=== PATIENT | female | born 1990 | race Caucasian/White ===

== ENCOUNTER 2018-01-24 08:15 | Inpatient (IN) ==
[2018-01-24] MEDS ORDERED: Lidocaine 1% 20 ML MDV INFILT PRN (09:10)
[2018-01-24] MEDS ORDERED: Famotidine 20 MG/2 ML VIAL IVP PRN (09:10)
[2018-01-24] MEDS ORDERED: Naloxone 0.4 MG/ML INJ IVP PRN (09:10)
[2018-01-24] MEDS ORDERED: Ondansetron 4 MG/2 ML VIAL IVP PRN (09:10)
[2018-01-24] MEDS ORDERED: Metoclopramide 10 MG/2 ML VIAL IVP PRN (09:10)
[2018-01-24] MEDS ORDERED: *HR* Nalbuphine 10 MG/ML AMPUL IVP PRN (09:10)
[2018-01-24] MEDS ORDERED: Ringers Solution, Lactated 1,000 ML IVC SCH (09:15)
[2018-01-24] MEDS ORDERED: Ringers Solution, Lactated 1,000 ML ONE (09:16)
--- NOTE | 2018-01-24 09:28 | Anesthesia Evaluation PreOp ---
Date of Encounter: 01/24/18 Time of Encounter: 09:16 - Past History Planned Operation: labor epidural Cardiac History: Denies any Significant Hx Pulmonary History: Denies Any Significant HX MINING MANAGER History: Denies Any Significant HX Other Medical History: Denies Any Significant HX Anesthesia History: No Prior Anesthetic Complications, Past Anesthesia (wisdom teeth, no problems. No FHAP.) Alcohol Use: occasionally Drug use: none Medications and Allergies 3 Allergy/AdvReac Type Severity Reaction Status Date / Time No Known Allergies Allergy Verified 09/07/15 16:10 - Meds/Allergy Pre-op Review Medications Reviewed: Yes Allergies Reviewed: Yes Beta Blockers on Current Med List: No Anesthesia Exam 130/80, 81, 98%, FHTs 150s. Height: 5'5" Weight: 102 kg NPO (# of Hours): >8 Pain Scale: 8 Pain Scale Used: Numeric (1 - 10) - HEENT Pupil (Motor): Pupils equal, EOMI Mallampati: II Teeth: Normal Oral Opening: Greater than 3 - MINING MANAGER LOC: Oriented MINING MANAGER Motor: Normal RUE, Normal LUE, Normal RLE, Normal LLE, Normal Face MINING MANAGER Sensory: Normal: RUE, LUE, RLE, LLE, Face - Cardiac Rhythm: Regular - Pulmonary Breath Sounds: bilateral Clear Respiratory Effort: Symmetrical Anesthesia Assess/Plan ASA Score: 2 Modified [place] Scale for Level of Consciousness: Cooperative, oriented, and tranquil Anesthetic Plan: Regional Monitoring Plan: Standard Monitors
[2018-01-24 09:29] LABS: Basophils % 0.3 %; Eosinophils % 0.1 %; Hematocrit 33.6 % (35.3-44.9); Hemoglobin 11.3 g/dL (11.5-15.4); Immature Granulocytes % 1.8 % (0-4); Immature Platelets 12.8 % (1.1-6.1); Lymphocytes # 1.9 K/mcL (0.6-4.6); Lymphocytes % 13.2 %; Mean Corpuscular HGB Conc 33.6 g/dL (31.6-35.5); Mean Corpuscular Hemoglobin 31.8 pg (28.0-33.3); Mean Corpuscular Volume 94.6 fL (83.0-100.0); Monocytes # 1.3 K/mcL (0.0-1.3); Monocytes % 9.5 %; Neutrophils # 10.5 K/mcL (1.6-8.9); Nucleated Red Blood Cells 0.2 /100 WBC (0); Platelet Count 146 K/mcL (140-400); Red Blood Count 3.55 M/mcL (3.82-4.97); Red Cell Distribution Width 14.4 % (11.5-14.5); Segmented Neutrophils % 75.1 %
[2018-01-24] MEDS ORDERED: Bupivacaine-MPF 0.25% 10 ML VIAL EP ONE (09:29)
[2018-01-24] MEDS ORDERED: *HR* FentaNYL (PF) 100 MCG/2 ML VIAL EP ONE (09:29)
[2018-01-24] MEDS ORDERED: Epidural Premix (fent/bupiv) 110 ML EP SCH (09:30)
[2018-01-24] MEDS ORDERED: Epidural Premix (fent/bupiv) 110 ML EP ONE (10:03)
--- NOTE | 2018-01-24 10:18 | OB/GYN History & Physical ---
Date of Encounter: 01/24/18 Time of Encounter: 10:13 Assessment and Plan (1) 40 weeks gestation of Current visit: Yes Status: Acute (2) Active labor at term Current visit: Yes Status: Acute Admit to L&D for observation of labor Expectant management GBS prophylaxis not indicated Pain management epidural - may have RISA Anticipate Dr. Araujo is present and aware of POC and agrees (3) Intrauterine Current visit: Yes Status: Acute History of Present Illness Chief complaint: contractions HPI: Ms. Rosen is a 27 year old female at 40 weeks + 2 days with an EDB of 01/22/18 dated by LMP. She presents with c/o contractions that started at 0300 this morning. She reports +FM and denies LOF, vaginal bleeding. Her course was uncomplicated. She was seen by our office and all records are available and were reviewed. Labs: O+ GBS- Hep B- T. Palladium - HIV - Rubella immune Varicella immune Past Med Surg Social Fam HX - Past Medical History Medical history: no medical history Psychiatric history: no psych history - Past Surgical History Surgical History: no surgical history - Social History Smoking Status: Never smoker Smokeless Tobacco Status: No Alcohol use: occasionally Drug use: none - Family History Mother Name: Sally Jones Hx Family Cardiac Disorders: No Hx Family Respiratory Disorders: No Hx Family Cancer: Yes (aunt breast cancer) Hx Family GI Disorders: No Hx Family Genitourinary Disorders: No Hx Family Endocrine Disorder: No Hx Family Musculoskeletal Disorders: No Hx Family Neurologic Disorders: No Hx Family HEENT Disorders: No Hx Family Autoimmune Disorders: Yes (RA) Hx Family Reproductive Disorders: No Hx Family Psychosocial Disorders: No Hx Family Medical Disorders: No Obstetrical History - Pregnancies : 1 Para: 0 Term: 0 : 0 Ab's: 0 Livin Medications and Allergies 3 Allergy/AdvReac Type Severity Reaction Status Date / Time No Known Allergies Allergy Verified 09/07/15 16:10 Review of System OB All systems PM: reviewed and no additional remarkable complaints except as stated Exam - Constitutional Constitutional: well developed, well nourished, average body habitus, moderate distress - HEENT HEENT: Normocephaly, Mucus Membranes Moist - Neck Neck exam: full ROM - Lungs Respiratory exam: CTAB - Cardiovascular Cardiovascular exam: RRR, +S1, +S2 - Breasts Breast: bilateral: normal - Abdomen Abdomen: Present: gravid, non tender - Extremities Extremities exam: normal inspection, pedal edema - Vulva Vulva: bilateral: normal - Vagina Vagina: Present: normal moisture - Cervix Dilation: 7 Effacement: 90 Station: -1 - Uterus Uterus exam: Present: normal size, normal contour - Anus/Rectum Anus/Rectum: Present: normal perianal skin Results Result Diagrams: 01/24/18 09:20 Abnormal lab results WBC 14.0 K/mcL (4.3-11.1) H 01/24/18 09:20 RBC 3.55 M/mcL (3.82-4.97) L 01/24/18 09:20 Hgb 11.3 g/dL (11.5-15.4) L 01/24/18 09:20 Hct 33.6 % (35.3-44.9) L 01/24/18 09:20 MPV 13.0 fL (9.4-12.4) H 01/24/18 09:20 Neutrophils # 10.5 K/mcL (1.6-8.9) H 01/24/18 09:20 Nucleated RBCs/100 WBC 0.2 /100 WBC (0) H 01/24/18 09:20 Immature Plt Fraction 12.8 % (1.1-6.1) H 01/24/18 09:20 All other labs normal. - VTE Reasons for not Prescribing Prophylaxis: Treatment not Indicated - Low risk for VTE
--- NOTE | 2018-01-24 10:29 | Anesthesia Procedures ---
Date of Encounter: 01/24/18 Time of Encounter: 10:26 Procedures: Anesthesia - Epidural/Spinal Patient ID/Chart reviewed: Yes Patient examined: Yes OB Eval: : 1 OB Eval: Hx Para: 0 OB Eval: Dilated at (cm): 7 OB Eval: Contractions: Non-stressed pattern Consent Obtained: Yes Supplemental Oxygen: None/Room Air Site Prep: Aseptic Technique Patient position: upright Local Anesthetic: Lidocaine 1% Amount of Local Anesthetic used: 3 Touhy Needle Gauge: 18 Touhy Needle Depth (cm): 6 Catheter Depth at Skin (cm): 12 Test Dose (1.5% Lido + Epi): Volume given (mls): 3 Test Dose Result: Negative Loading Dose: 0.25% Marcaine (mls): 7 Loading Dose: Fentanyl (mcg): 100 Loading Dose Administered: Thru Catheter Infusion Med: 0.125% Bupivacaine w/ 2 mcg/ml Fentanyl Catheter Secured in Place: Tegaderm Interspace Used: Other (L1-2) Loss of Resistance (KIM): Yes Blood: No CSF: No Paresthesia: No
--- NOTE | 2018-01-24 12:17 | OB Labor Progress Note ---
Date of Encounter: 01/24/18 Time of Encounter: 12:15 Labor Progress Note - Subjective Subjective: Pt comfortable with epidural. States she feels more pressure with contractions now. - Cervix Cervix: 9.5/100/0 - Heart Tones Heart Tones: Baseline 130 Moderate variability Accelerations present 15x15 Late decelerations previously repetitive and now resolved with fluid bolus and position changes FHR category II - Donaldson Donaldson: Contractions q 2-3 minutes and palpate strong - Interventions Interventions: Peanut ball and O2 and fluid bolus - Plan Plan: Continue expectant management Continue position changes Anticipate Dr. Araujo present and agrees with POC
[2018-01-24] MEDS ORDERED: Oxytocin 20 units/ LR 1000 mL 20 UNIT/1,000 ML BAG IVC ONE ×2 (13:00→15:24)
--- NOTE | 2018-01-24 14:13 | OB/GYN Procedure Note ---
Delivery - Delivery Date: 01/24/18 Provider: Inessa Mosqueda Intrapartum events: meconium Delivery induction: none Delivery monitor: external FHT, external uterine Anesthesia: epidural Estimated Blood Loss: 350 - (s) Infant A Infant Delivery Date: 01/24/18 Infant Delivery Time: 13:27 Presentation: vertex Position: OA Route of delivery: Gender: Male Viability: Viable Pounds: 8 Ounces: 14 Weight Gram: 4.035 kg at 1 minute: 9 at 5 mins: 10 Shoulder Dystocia: encountered Shoulder Dystocia Maneuvers: Jonas maneuver Shoulder dystocia time elapsed: 30 seconds Specimens collected: cord blood Placenta: spontaneous Cord: 3 umbilical vessels - Repair Episiotomy: none Laceration Description: Perineal - 1st Degree, Vaginal (bilateral) - Complications Delivery complications: meconium Delivery comments: This is a 27-year-old G1 now P1 who was admitted for active labor. She progressed spontaneously to the second stage of labor. She pushed for approximately 15 minutes. Under maternal effort she delivered a viable male infant, direct OA, over a first-degree laceration. A 30 second shoulder dystocia was encountered during which Jonas maneuver was used to release the anterior shoulder. A nuchal cord was not identified. Apgars were 9 at one minute and 10 at five minutes. The placenta delivered spontaneously, intact, with a three-vessel cord. Inspection revealed a first-degree perineal laceration and bilateral vaginal lacerations. There were also bilateral periurethral lacerations which were hemostatic. The perineal and vaginal lacerations were repaired with a 3-0 Vicryl in the usual fashion. The uterus was firm with no active bleeding. The repair was done under epidural anesthesia. EBL was 350 mL. Placenta was held and umbilical artery gases were not sent. Mom and baby skin to skin following delivery. Dr. Araujo was present for the entire delivery and repair. - Comments Comments: Procedure was reviewed and am in agreement .
[2018-01-24] MEDS ORDERED: Oxytocin 20 units/ LR 1000 mL 20 UNIT/1,000 ML BAG IVC SCH (17:59)
[2018-01-24] MEDS ORDERED: Acetaminophen 325 MG TABLET PO PRN (17:59)
[2018-01-24] MEDS: Ibuprofen 600 MG TABLET PO PRN (20:25)
[2018-01-25 05:21] LABS: Basophils % 0.2 %; Eosinophils % 0.1 %; Hematocrit 25.8 % (35.3-44.9); Immature Granulocytes % 1.7 % (0-4); Lymphocytes % 14.3 %; Mean Corpuscular HGB Conc 32.9 g/dL (31.6-35.5); Mean Corpuscular Hemoglobin 31.6 pg (28.0-33.3); Mean Corpuscular Volume 95.9 fL (83.0-100.0); Monocytes # 1.2 K/mcL (0.0-1.3); Monocytes % 8.3 %; Neutrophils # 10.4 K/mcL (1.6-8.9); Nucleated Red Blood Cells 0.2 /100 WBC (0); Platelet Count 111 K/mcL (140-400); Red Blood Count 2.69 M/mcL (3.82-4.97); Red Cell Distribution Width 14.4 % (11.5-14.5); Segmented Neutrophils % 75.4 %
[2018-01-25 05:33] LABS: Hemoglobin 8.5 g/dL (11.5-15.4)
[2018-01-25] MEDS: Ibuprofen 600 MG TABLET PO PRN (07:41)
[2018-01-25] MEDS ORDERED: Benzocaine/Menthol 56 GM AEROSOL SPRAY TP PRN (07:46)
[2018-01-25 08:10] VITALS: BP 119/74
[2018-01-25] MEDS ORDERED: Prenatal Vit/FA 1 EACH TABLET PO SCH (09:00)
--- NOTE | 2018-01-25 09:24 | Discharge Summary ---
Date of Encounter: 01/25/18 Time of Encounter: 09:22 - Discharge Diagnosis (1) Vaginal delivery Priority: Primary Status: Acute Comments: s/p vaginal delivery day 1 pain is well controlled lochia is light and without clots VSS tolerating regular diet voiding without difficulty discharge home today (2) Breast feeding status of mother Priority: Secondary Status: Acute - Discharge Medications Prescriptions: Ibuprofen [Motrin] 600 mg PO Q6HR PRN #30 tablet PRN Reason: Cramping Breast Pump [BREAST PUMP] 1 each .ROUTE AD 99 Days #1 each Docusate [Colace] 100 mg PO BID PRN #20 capsule PRN Reason: Constipation Ferrous Sulfate 325 mg PO DAILY #60 tablet Home Medications: Acetaminophen [Tylenol] 650 mg PO Q6HR PRN tablet 01/25/18 [Rx] Benzocaine/Menthol [place] [Dermoplast [place]] 1 appl TP QID PRN aerosol 01/25/18 [Rx] Breast Pump [BREAST PUMP] 1 each .ROUTE AD 99 Days #1 each 01/25/18 [Rx] Docusate [Colace] 100 mg PO BID PRN #20 capsule 01/25/18 [Rx] Ferrous Sulfate 325 mg PO DAILY #60 tablet 01/25/18 [Rx] Ibuprofen [Motrin] 600 mg PO Q6HR PRN #30 tablet 01/25/18 [Rx] Vit/FA 1 each PO DAILY tablet 01/25/18 [Rx] Allergies/Adverse Reactions: 3 Allergy/AdvReac Type Severity Reaction Status Date / Time No Known Allergies Allergy Verified 09/07/15 16:10 Data Procedures and tests throughout hospitalization: Laboratory Tests 01/24/18 01/25/18 09:20 04:37 WBC 14.0 H 13.9 H RBC 3.55 L 2.69 L Hgb 11.3 L 8.5 L D Hct 33.6 L 25.8 L MCV 94.6 95.9 MCH 31.8 31.6 MCHC 33.6 32.9 RDW 14.4 14.4 Plt Count 146 111 L MPV 13.0 H 13.0 H Immature Gran % 1.8 1.7 Seg Neutrophils % 75.1 75.4 Lymphocytes % 13.2 14.3 Monocytes % 9.5 8.3 Eosinophils % 0.1 0.1 Basophils % 0.3 0.2 Neutrophils # 10.5 H 10.4 H Lymphocytes # 1.9 2.0 Monocytes # 1.3 1.2 Eosinophils # 0.0 0.0 Basophils # 0.0 0.0 Nucleated RBCs/100 WBC 0.2 H 0.2 H Immature Plt Fraction 12.8 H Labs on day of discharge: Labs from last 24 hours 01/25/18 01/24/18 04:37 09:20 WBC 13.9 H 14.0 H RBC 2.69 L 3.55 L Hgb 8.5 L D 11.3 L Hct 25.8 L 33.6 L MCV 95.9 94.6 MCH 31.6 31.8 MCHC 32.9 33.6 RDW 14.4 14.4 Plt Count 111 L 146 MPV 13.0 H 13.0 H Immature Gran % 1.7 1.8 Seg Neutrophils % 75.4 75.1 Lymphocytes % 14.3 13.2 Monocytes % 8.3 9.5 Eosinophils % 0.1 0.1 Basophils % 0.2 0.3 Neutrophils # 10.4 H 10.5 H Lymphocytes # 2.0 1.9 Monocytes # 1.2 1.3 Eosinophils # 0.0 0.0 Basophils # 0.0 0.0 Nucleated RBCs/100 WBC 0.2 H 0.2 H Immature Plt Fraction 12.8 H Date of admission: 01/24/18 08:15 Primary care physician: Bekah Fish Consults: 01/24/18 17:59 Consult to Abstract Maker [CONS] Routine Comment: Vaginal delivery, consult needed Discharging clinician: Inessa Khalil Anticipated date of discharge: 01/25/18 - Patient Status Disposition: Home, Self-Care Condition: Good Functional capacity at discharge: independent ambulation Overall status at discharge: patient is progressing back to baseline - Discharge Instructions Follow Up With: Carlie Noble DO [Primary Care Provider] - Inessa Mosqueda [Advanced Practice Nurse] - - Diet and Activity Activity: increase activity as tolerated Diet: regular diet Hospital Course Reason for admission: IUP at term Delivery: Episiotomy: none Laceration: none Other procedures: none complications: none Discharge diagnosis: IUP at term delivered baby: male Time Attestation: Total time spent providing and/or coordinating discharge services: Time Spent: Less than 30 minutes Exam - Constitutional Vitals: Temp Pulse Resp BP Pulse Ox 98 F 77 20 119/74 97 01/25/18 08:08 01/25/18 08:08 01/25/18 08:08 01/25/18 08:08 01/25/18 08:08 General appearance IM: cooperative, A&O X 3, pleasant - Respiratory Respiratory exam: Present: CTAB - Cardiovascular Cardiovascular exam IM: Present: RRR, +S1, +S2 - GI/Abdominal GI/Abdominal exam IM: normal bowel sounds, soft - Rectal Rectal exam: deferred - Uterine Tone: Firm Uterus Position: At Umbilicus, Midline - Extremities Exam Extremities exam IM: Present: normal capillary refill, normal inspection, radial pulses palpable and symmetrical - Neurological Exam Neurological exam: alert, oriented X3
== END 2018-01-25 15:05 | disposition home or self-care (01) | DRG 775 ==
LOC: 1NENULAB 08:15 → 1NENUOBS 17:56
PROVIDERS: ADMIT Obstetrics & Gynecology; ATTEND Obstetrics & Gynecology